=== PATIENT | female | born 1985 | race Caucasian/White ===

== ENCOUNTER → 2018-11-04 | Emergency (ER) | payer OTHER ==
[~2018-11-04] VITALS: Ht 160 cm; Wt 86.8 kg
[~2018-11-04] MED LIST: GENTAMICIN EYE D5 ML OU; MAXZIDE-25MG TA1 TAB PO; MOTRIN 800800 MG/TAB PO; NAPROSYN500 MG PO; NO HOME MEDICATIONS; NORCO 325 MG-51 TAB PO; PERCOCET 325 MG1 TA2 PO; PRENATAL1 TA6 PO
[2018-11-04 01:56] VITALS: BP 121/84; PULSE 79; TEMP 97.8
== END ==
LOC: COL.ER 01:48
DX: M70.42 Prepatellar bursitis, left knee (principal); F32.9 Major depressive disorder, single episode, unspecified; F17.210 Nicotine dependence, cigarettes, uncomplicated